=== PATIENT | female | born 1975 | race Caucasian/White ===

== ENCOUNTER 2023-06-13 09:02 | Day surgery (SDC) | payer OTHER ==
[~2023-06-13] VITALS: Ht 152.4 cm; Wt 73.7 kg
[~2023-06-13 09:02] MED LIST: D-3-50003 PO; LISI5TAB11 PO; NS 1,000 ML IV ONE; VITMTA PO
[2023-06-13] MEDS ORDERED: fentaNYL 100 MCG/2 ML INJECTION As Ordered ONE (09:50)
[2023-06-13] MEDS ORDERED: LIDOCAINE 2% 100MG/5ML SDV (FOR ANES.) As Ordered ONE (09:51)
[2023-06-13] MEDS ORDERED: propofoL 200 MG/20 ML VIAL As Ordered ONE (09:51)
[2023-06-13 10:17] VITALS: TEMP 96.4
[2023-06-13 10:39] VITALS: BP 127/89; O2SAT 97
== END 2023-06-13 10:48 | disposition home or self-care (01) ==
LOC: M OPP 09:02
PROVIDERS: ATTEND Surgery
DX: Z12.11 Encounter for screening for malignant neoplasm of colon (principal); K57.30 Diverticulosis of large intestine without perforation or abscess without bleeding; K29.70 Gastritis, unspecified, without bleeding; K22.89 Other specified disease of esophagus; Z87.891 Personal history of nicotine dependence
CPT/HCPCS: 43239; 45378; 88305; J3010

== ENCOUNTER → 2024-10-28 | Outpatient (CLI) | payer OTHER ==
[~2024-10-28] MED LIST changes: -NS 1,000 ML IV ONE
== END ==
LOC: M RAD 09:45
PROVIDERS: ATTEND Nurse Practitioner Family
DX: J45.30 Mild persistent asthma, uncomplicated (principal)

== ENCOUNTER → 2025-01-12 | Outpatient (CLI) | payer OTHER | LOC: M RAD 14:57 | PROVIDERS: ATTEND Nurse Practitioner Family | DX: M25.542 Pain in joints of left hand (principal); M19.042 Primary osteoarthritis, left hand ==

== ENCOUNTER 2025-06-10 09:50 | Day surgery (SDC) | payer OTHER ==
[~2025-06-10] VITALS: Ht 152.4 cm; Wt 69.4 kg
[~2025-06-10 09:50] MED LIST changes: +AMIT-253 PO; +OMEP1CAP73 PO; +PROG1CAP8 PO; +SEMA1.7P SQ; +VITA100093 PO
[2025-06-10 11:47] VITALS: TEMP 98.6
[2025-06-10 12:04] VITALS: BP 121/87; O2SAT 98
== END 2025-06-10 12:10 | disposition home or self-care (01) ==
LOC: M OPP 09:50
PROVIDERS: ATTEND Surgery
DX: K31.7 Polyp of stomach and duodenum (principal); R93.3 Abnormal findings on diagnostic imaging of other parts of digestive tract; Z79.85 Long-term (current) use of injectable non-insulin antidiabetic drugs; Z79.899 Other long term (current) drug therapy